=== PATIENT | male | born 1975 | race Caucasian/White ===

== ENCOUNTER 2016-09-09 06:29 | Day surgery (SDC) | payer BC ==
--- NOTE | ~2016-09-09 | EGD ---
EGD REPORT [facility] [address] [address] NAME: AMBAR MONTANEZ : [birth year] [place] : [place] [facility] [place] [id number] AGE: 41 ADM/REG DATE : 09/09/16 MR#: [id number] REPORT SERV DATE: 09/09/16 DICTATED BY: BENNYYIN INDIGO DATE: 09/09/16 REPORT STATUS : Draft TRANSCRIBED BY: [employer] DATE: 09/09/16 [facility] Patient Name: Ambar Montanez Date of : 1975 Attending MD: YIN ZAPATA MD Procedure Date No Time: 09/09/2016 Procedure: Colonoscopy Indications: Clinically significant diarrhea of unexplained origin Referring MD: JO-ANN FINNEY MD Medicines: Monitored Anesthesia Care Complications: No immediate complications. Procedure: Pre-Anesthesia Assessment: - ASA Grade Assessment: II - A patient with mild systemic disease. After I obtained informed consent, the scope was passed under direct vision. Throughout the procedure, the patient's blood pressure, pulse, and oxygen saturations were monitored continuously. The CF [id number] was introduced through the anus and advanced to the terminal ileum, with identification of the appendiceal orifice and IC valve. The colonoscopy was performed without difficulty. The patient tolerated the procedure well. The quality of the bowel preparation was good. Findings: The digital rectal exam was normal. Pertinent negatives include no palpable rectal lesions. The terminal ileum appeared normal. The ascending colon appeared normal. Biopsies were taken with a cold forceps for evaluation of microscopic colitis. The sigmoid colon appeared normal. Biopsies were taken with a cold forceps for evaluation of microscopic colitis. The rectum appeared normal. Biopsies were taken with a cold forceps for evaluation of microscopic colitis. A sessile polyp was found in the rectum. The polyp was 30 x 20 mm in size. Polyp was 3 cm from anus. Biopsies were taken with a cold forceps for histology. The polyp was removed with a hot snare. Polyp resection was incomplete. My impression is that this is a large sessile adenomatous polyp. The resected tissue was retrieved. Estimated blood loss was minimal. Hemorrhoids were found during retroflexion. Impression: - The examined portion of the ileum was normal. - The ascending colon is normal. Biopsied. - The sigmoid colon is normal. Biopsied. EGD REPORT [address] [address] NAME: AMBAR MONTANEZ : [birth year] [place] [facility] [place]#: [id number] AGE: 41 ADM/REG DATE : 09/09/16 MR#: [id number] REPORT SERV DATE: 09/09/16 DICTATED BY: YIN ZAPATA DATE: 09/09/16 REPORT STATUS : Draft TRANSCRIBED BY: [employer] DATE: 09/09/16 - The rectum is normal. Biopsied. - One 30 x 20 mm polyp in the rectum. It was located 3 cm from anus. Incomplete resection. Resected tissue retrieved. Biopsied. - Hemorrhoids. Recommendation: - Patient has a contact number available for emergencies. The signs and symptoms of potential delayed complications were discussed with the patient. Return to normal activities tomorrow. Written discharge instructions were provided to the patient. - Regular diet. - Continue present medications. - Await pathology results. - Return to GI clinic in 3 weeks.We will need to discuss path from large polyp and decide whether to take it out endoscopically with endoscopic mucosal resection or referral to CRS. Procedure Code(s): --- Professional --- 69589, Colonoscopy, flexible, proximal to splenic flexure; with removal of tumor(s), polyp(s), or other lesion(s) by snare technique 74114, 59, Colonoscopy, flexible, proximal to splenic flexure; with biopsy, single or multiple Diagnosis Code(s): --- Professional --- K64.9, Unspecified hemorrhoids K62.1, Rectal polyp R19.7, Diarrhea, unspecified CPT copyright 2013 [employer]. All rights reserved. The codes documented in this report are preliminary and upon creative arts therapist review may be revised to meet current compliance requirements. YIN ZAPATA MD 09/09/2016 9:05 AM This report has been signed electronically. Number of Addenda: 0 Note Initiated On: 09/09/2016 8:21 AM Scope Withdrawal Time 0 hours 13 minutes 23 seconds [id number] [place] [id number]
--- NOTE | ~2016-09-09 | EGD ---
EGD REPORT [facility] [address] [address] NAME: AMBAR MONTANEZ : [birth year] STATUS : [facility]#: [id number] AGE: 41 ADM/REG DATE : 09/09/16 MR#: [id number] REPORT SERV DATE: 10/28/16 DICTATED BY: BENNYYIN INDIGO DATE: 10/28/16 REPORT STATUS : Draft TRANSCRIBED BY: [employer] DATE: 10/28/16 [facility] Center Patient Name: Ambar Montanez Date of : 1975 Attending MD: YIN ZAPATA MD Procedure Date No Time: 09/09/2016 Procedure: Colonoscopy Indications: Clinically significant diarrhea of unexplained origin Referring MD: JO-ANN FINNEY MD Medicines: Monitored Anesthesia Care Complications: No immediate complications. Procedure: Pre-Anesthesia Assessment: - ASA Grade Assessment: II - A patient with mild systemic disease. After I obtained informed consent, the scope was passed under direct vision. Throughout the procedure, the patient's blood pressure, pulse, and oxygen saturations were monitored continuously. The CF [id number] was introduced through the anus and advanced to the terminal ileum, with identification of the appendiceal orifice and IC valve. The colonoscopy was performed without difficulty. The patient tolerated the procedure well. The quality of the bowel preparation was good. Findings: The digital rectal exam was normal. Pertinent negatives include no palpable rectal lesions. The terminal ileum appeared normal. The ascending colon appeared normal. Biopsies were taken with a cold forceps for evaluation of microscopic colitis. The sigmoid colon appeared normal. Biopsies were taken with a cold forceps for evaluation of microscopic colitis. The rectum appeared normal. Biopsies were taken with a cold forceps for evaluation of microscopic colitis. A sessile polyp was found in the rectum. The polyp was 30 x 20 mm in size. Polyp was 3 cm from anus. Biopsies were taken with a cold forceps for histology. The polyp was removed with a hot snare. Polyp resection was incomplete. My impression is that this is a large sessile adenomatous polyp. The resected tissue was retrieved. Estimated blood loss was minimal. Hemorrhoids were found during retroflexion. Impression: - The examined portion of the ileum was normal. - The ascending colon is normal. Biopsied. - The sigmoid colon is normal. Biopsied. EGD REPORT [address] [address] NAME: AMBAR MONTANEZ : [birth year] STATUS : [facility] PAT#: [id number] AGE: 41 ADM/REG DATE : 09/09/16 MR#: [id number] REPORT SERV DATE: 10/28/16 DICTATED BY: YIN ZAPATA DATE: 10/28/16 REPORT STATUS : Draft TRANSCRIBED BY: [employer] DATE: 10/28/16 - The rectum is normal. Biopsied. - One 30 x 20 mm polyp in the rectum. It was located 3 cm from anus. Incomplete resection. Resected tissue retrieved. Biopsied. - Hemorrhoids. Recommendation: - Patient has a contact number available for emergencies. The signs and symptoms of potential delayed complications were discussed with the patient. Return to normal activities tomorrow. Written discharge instructions were provided to the patient. - Regular diet. - Continue present medications. - Await pathology results. - Return to GI clinic in 3 weeks.We will need to discuss path from large polyp and decide whether to take it out endoscopically with endoscopic mucosal resection or referral to CRS. Procedure Code(s): --- Professional --- 75453, Colonoscopy, flexible, proximal to splenic flexure; with removal of tumor(s), polyp(s), or other lesion(s) by snare technique 97477, 59, Colonoscopy, flexible, proximal to splenic flexure; with biopsy, single or multiple Diagnosis Code(s): --- Professional --- K64.9, Unspecified hemorrhoids K62.1, Rectal polyp R19.7, Diarrhea, unspecified CPT copyright 2013 [employer]. All rights reserved. The codes documented in this report are preliminary and upon finishing room supervisor review may be revised to meet current compliance requirements. YIN ZAPATA MD 09/09/2016 9:05 AM This report has been signed electronically. Number of Addenda: 0 Note Initiated On: 09/09/2016 8:21 AM Scope Withdrawal Time 0 hours 13 minutes 23 seconds [id number] [place] [id number]
[~2016-09-09 06:29] MED LIST: ALLEGRA180 PO; KEPPRA500 PO; MULTIPLE VIT PO
== END 2016-09-09 23:59 | disposition home or self-care (01) ==
LOC: DMU 06:29
PROVIDERS: Internal Medicine Gastroenterology
PROC: 0DBN8ZX Excision of Sigmoid Colon, Via Natural or Artificial Opening Endoscopic, Diagnostic (ICD-10-PCS; 2016-09-09)
PROC: 0DBK8ZX Excision of Ascending Colon, Via Natural or Artificial Opening Endoscopic, Diagnostic (ICD-10-PCS; principal; 2016-09-09 08:00)
PROC: 0DBP8ZX Excision of Rectum, Via Natural or Artificial Opening Endoscopic, Diagnostic (ICD-10-PCS; 2016-09-09 08:00)
DX: D12.8 Benign neoplasm of rectum (principal); G40.909 Epilepsy, unspecified, not intractable, without status epilepticus; R62.50 Unspecified lack of expected normal physiological development in childhood; Z79.899 Other long term (current) drug therapy
CPT/HCPCS: 88305